=== PATIENT | male | born 1975 | race Caucasian/White ===

== ENCOUNTER → 2016-10-24 | Outpatient (REF) | payer BC, OTHER ==
[2016-10-24 12:11] LABS: BASO % 0.9 % (0.0-1.0); EOS % 1.1 % (0.0-3.0); LARGE UNSTAINED CELL # 0.1 K/mm3 (0.0-0.4); LARGE UNSTAINED CELL % 2.1 % (0.0-4.0); LYMPH # 0.9 K/mm3 (1.5-4.5); LYMPH % 26.5 % (24.0-44.0); MEAN CORPUSCULAR HGB CONC 33.3 g/dl (32.0-36.5); MEAN CORPUSCULAR VOLUME 93.1 fl (80.0-96.0); MONO # 0.3 K/mm3 (0.0-0.8); MONO % 7.4 % (0.0-5.0); NEUTROPHILS # 2.2 K/mm3 (1.8-7.7); PLATELET COUNT, AUTOMATED 229 k/mm3 (150-450); RED CELL DISTRIBUTION WIDTH 11.7 % (11.5-14.5); WHITE BLOOD COUNT 3.5 K/mm3 (4.0-10.0)
[2016-10-24 12:21] LABS: ALBUMIN/GLOBULIN RATIO 1.33 (1.00-1.93); BILIRUBIN,TOTAL 0.5 MG/DL (0.2-1.0); CALCIUM LEVEL 8.8 MG/DL (8.5-10.1); CREATININE FOR GFR 1.4 MG/DL (0.70-1.30); GLOMERULAR FILTRATION RATE 59.8 (>60); POTASSIUM SERUM 4.3 MEQ/L (3.5-5.1)
== END ==
LOC: M LABDRAW1 11:50
PROVIDERS: ATTEND Family Medicine
DX: Z00.00 Encounter for general adult medical examination without abnormal findings (principal)

== ENCOUNTER → 2022-08-05 | Outpatient (CLI) | payer BC, OTHER ==
[2022-08-05 15:02] LABS: BASO % 0.9 % (0.0-1.0); EOS # 0.1 10^3/uL (0.0-0.5); EOS % 1.6 % (0.0-3.0); HEMATOCRIT 47.9 % (42.0-52.0); HEMOGLOBIN 15.5 g/dl (13.5-17.5); LYMPH # 1.1 10^3/uL (1.5-5.0); LYMPH % 24.8 % (24.0-44.0); MEAN CORPUSCULAR HEMOGLOBIN 30.8 pg (27.0-33.0); MEAN CORPUSCULAR HGB CONC 32.4 g/dl (32.0-36.5); MEAN CORPUSCULAR VOLUME 95.2 fl (80.0-96.0); MONO # 0.6 10^3/uL (0.0-0.8); MONO % 12.8 % (2.0-8.0); NEUTROPHILS # 2.7 10^3/uL (1.5-8.5); NEUTROPHILS % 59.7 % (36.0-66.0); PLATELET COUNT, AUTOMATED 194 10^3/uL (150-450); RED BLOOD COUNT 5.03 10^6/uL (4.30-6.10); WHITE BLOOD COUNT 4.4 10^3/uL (4.0-10.0)
[2022-08-05 18:18] LABS: ALT/SGPT 24 U/L (7.0-40); BILIRUBIN,TOTAL 0.7 MG/DL (0.3-1.2); BLOOD UREA NITROGEN 19 MG/DL (9-23); CALCIUM LEVEL 8.9 MG/DL (8.5-10.1); CARBON DIOXIDE LEVEL 29 MMOL/L (20-31); CHLORIDE LEVEL 106 MMOL/L (98-107); CHOLESTEROL LEVEL 146 MG/DL (<200); CHOLESTEROL RISK RATIO 3.55 (<5); CREATININE FOR GFR 1.34 MG/DL (0.70-1.30); GLOMERULAR FILTRATION RATE > 60.0 (>60); GLUCOSE, FASTING 79 MG/DL (60-100); HDL CHOLESTEROL 41.1 MG/DL (>40); LDL CHOLESTEROL 92.3 MG/DL (<100); NON-HDL-C 105 MG/DL; POTASSIUM SERUM 4.7 MMOL/L (3.5-5.1); SODIUM LEVEL 143 MMOL/L (136-145); TOTAL PROTEIN 6.7 G/DL; TRIGLYCERIDES LEVEL 63 MG/DL (<150)
== END ==
LOC: M WUC 09:29
PROVIDERS: ATTEND Student in an Organized Health Care Education/Training Program
DX: Z00.00 Encounter for general adult medical examination without abnormal findings (principal)

== ENCOUNTER → 2022-08-28 | Outpatient (CLI) | payer BC, OTHER ==
[~2022-08-28] MED LIST: MECL-86 PO
== END ==
LOC: M LABSMTC 10:46
PROVIDERS: ATTEND Anesthesiology
DX: Z01.812 Encounter for preprocedural laboratory examination (principal); Z11.52 Encounter for screening for COVID-19

== ENCOUNTER 2022-09-02 09:29 | Day surgery (SDC) | payer BC, OTHER ==
[~2022-09-02] VITALS: Ht 177.8 cm; Wt 87.0 kg
[~2022-09-02 09:29] MED LIST changes: +NS 1,000 ML IV ONE
[2022-09-02] MEDS ORDERED: LIDOCAINE 2% 100MG/5ML SDV (FOR ANES.) As Ordered ONE (10:34)
[2022-09-02] MEDS ORDERED: propofoL 200 MG/20 ML VIAL As Ordered ONE ×2 (10:34→10:50)
[2022-09-02 11:35] VITALS: BP 109/68
== END 2022-09-02 11:39 | disposition home or self-care (01) ==
LOC: M OPP 09:29
PROVIDERS: ATTEND Internal Medicine Gastroenterology
DX: Z12.11 Encounter for screening for malignant neoplasm of colon (principal); D12.0 Benign neoplasm of cecum; D12.2 Benign neoplasm of ascending colon; D12.5 Benign neoplasm of sigmoid colon; K64.4 Residual hemorrhoidal skin tags; K64.8 Other hemorrhoids; K57.30 Diverticulosis of large intestine without perforation or abscess without bleeding; Z79.899 Other long term (current) drug therapy

== ENCOUNTER 2024-01-19 12:49 | Day surgery (SDC) | payer BC ==
[~2024-01-19] VITALS: Ht 177.8 cm; Wt 89.4 kg
[2024-01-19] MEDS ORDERED: propofoL 200 MG/20 ML VIAL As Ordered ONE (14:18)
[2024-01-19] MEDS ORDERED: LIDOCAINE 2% INJ 100 MG/5 ML SYRINGE As Ordered ONE (14:18)
[2024-01-19 14:56] VITALS: BP 112/72; TEMP 97.9; O2SAT 99
== END 2024-01-19 14:59 | disposition home or self-care (01) ==
LOC: M OPP 12:49
PROVIDERS: ATTEND Internal Medicine Gastroenterology
DX: Z12.11 Encounter for screening for malignant neoplasm of colon (principal); D12.8 Benign neoplasm of rectum; D12.2 Benign neoplasm of ascending colon; K64.8 Other hemorrhoids; K57.30 Diverticulosis of large intestine without perforation or abscess without bleeding; Z86.010 Personal history of colon polyps

== ENCOUNTER → 2024-11-18 | Outpatient (CLI) | payer BC ==
[~2024-11-18] MED LIST changes: -NS 1,000 ML IV ONE
[2024-11-18 10:26] LABS: HEMATOCRIT 45.6 % (42.0-52.0); MEAN CORPUSCULAR HEMOGLOBIN 30.4 pg (27.0-33.0); MEAN CORPUSCULAR HGB CONC 32.9 g/dl (32.0-36.5); MEAN CORPUSCULAR VOLUME 92.3 fl (80.0-96.0); PLATELET COUNT, AUTOMATED 190 10^3/uL (150-450); RED BLOOD COUNT 4.94 10^6/uL (4.30-6.10); WHITE BLOOD COUNT 4.8 10^3/uL (4.0-10.0)
[2024-11-18 10:30] LABS: ALBUMIN 3.8 G/DL (3.2-5.2); ALKALINE PHOSPHATASE 89 U/L (40-129); ALT/SGPT 34 U/L (7.0-40); AST/SGOT 21 U/L (<34); BILIRUBIN,TOTAL 0.3 MG/DL (0.3-1.2); BLOOD UREA NITROGEN 16 MG/DL (9-23); CALCIUM LEVEL 8.6 MG/DL (8.5-10.1); CARBON DIOXIDE LEVEL 26 MMOL/L (20-31); CHLORIDE LEVEL 111 MMOL/L (98-107); CHOLESTEROL LEVEL 146 MG/DL (<200); CHOLESTEROL RISK RATIO 4.18 (<5); CREATININE FOR GFR 1.18 MG/DL (0.70-1.30); GLOMERULAR FILTRATION RATE > 60.0 (>60); GLUCOSE, FASTING 89 MG/DL (60-100); HDL CHOLESTEROL 34.9 MG/DL (>40); LDL CHOLESTEROL 99.7 MG/DL (<100); NON-HDL-C 111.1 MG/DL; POTASSIUM SERUM 4.3 MMOL/L (3.5-5.1); SODIUM LEVEL 144 MMOL/L (136-145); TOTAL PROTEIN 6.9 G/DL (5.7-8.2); TRIGLYCERIDES LEVEL 57 MG/DL (<150)
[2024-11-18 10:31] LABS: THYROID STIMULATING HORMONE 2.894 uIU/ML (0.55-4.78); TOTAL 25(OH) VITAMIN D 27.3 NG/ML (20.0-100.0)
== END ==
LOC: M WUC 08:04
DX: Z00.00 Encounter for general adult medical examination without abnormal findings (principal)